=== PATIENT | female | born 1965 | race Two or more races ===

== ENCOUNTER 2024-08-01 09:44 | Day surgery (SDC) | payer OTHER ==
[2024-07-29 09:05] LABS: HEMATOCRIT 32.7 % (36.0-45.00); HEMOGLOBIN 11.5 g/dL (12.0-15.00); MEAN CELL VOLUME 96.7 fL (80.00-100.00); MEAN CORPUSCULAR HEMOGLOBIN 34.1 pg (27.00-32.0); MEAN CORPUSCULAR HGB CONC 35.3 g/dl (32.0-36.0); PLATELET COUNT 159 K/uL (150-450); RED BLOOD COUNT 3.38 M/uL (4.00-6.00); RED CELL DISTRIBUTION WIDTH 13.5 % (11.5-14.5)
[2024-07-29 09:13] LABS: PH,URINE 8.5 (5.0-8.0); URINE APPEARANCE Clear; URINE BILIRRUBIN Negative (NEGATIVE); URINE BLOOD Trace; URINE COLOR Yellow; URINE GLUCOSE Negative (NEGATIVE); URINE KETONE Negative (NEGATIVE); URINE LEUKOCYTE Moderate; URINE NITRATE Negative; URINE UROBILINOGEN 0.2 E.U./dl
[2024-07-29 09:20] LABS: URINE BACTERIA 1792.9 uL (0.0-1933); URINE CAST 1.52 uL (0.0-1.40); URINE WBC 320.1 uL (0.0-23.2)
[2024-07-29 09:23] LABS: INR 1.08; PARTIAL THROMBOPLASTIN TIME 29.4 SECONDS (22.0-34.0); PROTHROMBIN TIME 11.7 SECONDS (9.0-11.5); URINE PROTEIN 100 (NEGATIVE); URINE RBC 1.5 uL (0.0-20.8)
[2024-07-29 09:35] LABS: URINE YEAST FEW /hpf
[2024-07-29 10:19] LABS: ALBUMIN 4.1 gm/dL (3.4-5.0); BILIRUBIN TOTAL 0.44 mg/dL (0.3-1.2); CALCIUM 10.1 mg/dL (8.5-10.1); GFR 6.5; GLOBULINA 2.7 G/DL (2.4-3.5); POTASSIUM 3.99 mEq/L (3.5-5.1); TOTAL PROTEIN 6.8 gm/dL (6.4-8.2)
[2024-07-29 12:41] LABS: CREATININE SERUM 6.52 mg/dL (0.55-1.02)
[~2024-08-01 09:44] MED LIST: CARDURA1 MG; CRESTOR10 MG PO; HUMALOG100 UNIT/2 SUBCUTANEO; LANTUS SOL100 UNIT/1 SUBCUTANEO; LASIX20 MG PO; NEURONTIN800 MG PO; PEPCID AC20 MG PO; SINGULAIR10 MG PO; SYNTHROID88 MCG PO; TRADJENTA5 MG PO
[2024-08-01] MEDS ORDERED: CEFAZOLIN SODIUM 1,000 MG VIAL ONE (13:18)
[2024-08-01] MEDS ORDERED: HEPARIN SODIUM,PORCINE 500 UNITS/5 ML VIAL IV ONE (13:59)
[2024-08-01] MEDS ORDERED: BUPIVACAINE HCL/MPF 0.5% 30ML VIAL ONE (14:21)
[2024-08-01] MEDS ORDERED: LIDOCAINE HCL 1%/EPINEPHRINE 20ML VIAL IJ ONE (14:21)
== END 2024-08-01 17:00 | disposition home or self-care (01) ==
LOC: CIR.AMB 09:44
PROVIDERS: ATTEND Specialist
DX: T82.41XA Breakdown (mechanical) of vascular dialysis catheter, initial encounter (principal); N18.6 End stage renal disease; I10 Essential (primary) hypertension; E03.8 Other specified hypothyroidism; E11.9 Type 2 diabetes mellitus without complications; J45.909 Unspecified asthma, uncomplicated; Z88.6 Allergy status to analgesic agent; Z88.5 Allergy status to narcotic agent